=== PATIENT | male | born 1955 | race Caucasian/White ===

== ENCOUNTER 2024-03-19 00:27 | Inpatient (IN) | payer MEDICARE, MEDICAID ==
[2024-03-19] VITALS (74 sets, daily range): BP systolic 55–147; BP diastolic 33–106; PULSE 105–146; RESP 14–24; TEMP 98–102; O2SAT 96–98
[~2024-03-19] VITALS: Ht 172.7 cm; Wt 66.7 kg
[~2024-03-19 00:27] MED LIST: RISP1
[2024-03-19] MEDS: SODIUM CHLORIDE 0.9% 1000ML BAG (SEPSIS BOLUS) IV ONE (00:42)
[2024-03-19 00:59] LABS: HEMATOCRIT. 44.9 % (42.0-52.0); HEMOGLOBIN. 14.8 g/dL (14.0-18.0); MEAN CORPUSCULAR VOLUME 97.1 fL (80.0-94.0); PLATELET 193 x1000/uL (130-400); RED BLOOD CELL COUNT 4.62 mill/uL (4.7-6.1); RED CELL DISTRIBUTION WIDTH 13.1 % (11.6-14.6); WHITE BLOOD COUNT 5.7 x1000/uL (4.5-11.0)
[2024-03-19] MEDS: PIPERACILLIN/TAZO 3.375G/50ML 50 ML IV ONE (00:59)
[2024-03-19 01:03] LABS: CHLORIDE 104 mEq/L (98-107); POTASSIUM 3.8 mEq/L (3.5-5.1); SODIUM 141 mEq/L (136-145)
[2024-03-19 01:04] LABS: CARBON DIOXIDE 23 mEq/L (21-32)
[2024-03-19 01:05] LABS: CALCIUM 9.3 mg/dL (8.7-10.4)
[2024-03-19 01:09] LABS: CREATININE 1.3 mg/dL (0.6-1.3); GLUCOSE 64 mg/dL (70-105); UREA NITROGEN BLOOD 29 mg/dL (9-23)
[2024-03-19 01:11] LABS: ALANINE AMINOTRANSFERASE 31 IU/L (10-49); ALBUMIN 3.7 g/dL (3.2-4.8); ASPARTATE AMINOTRANSFERASE 36 IU/L (<34)
[2024-03-19 01:12] LABS: BILIRUBIN DIRECT 0.2 mg/dL (<=3.0); BILIRUBIN TOTAL 0.5 mg/dL (0.1-1.0); PROTEIN TOTAL 6.5 g/dL (6.0-8.3)
[2024-03-19 01:14] LABS: DIFFERENTIAL COMMENT 1
[2024-03-19] MEDS: VANCOMYCIN 1G PREMIX 200 ML IV ONE (01:32)
[2024-03-19 01:39] LABS: INR 1.5; PROTHROMBIN TIME 16.5 sec (9.6-11.0)
[2024-03-19 01:40] LABS: LACTIC ACID 8.2 mmol/L (0.4-2.0)
[2024-03-19 01:41] LABS: TROPONIN I HIGH SENSITIVITY 115 ng/L (3.0-53)
[2024-03-19 02:15] LABS: CLARITY URINE TURBID (CLEAR); COLOR URINE RED (YELLOW); GLUCOSE URINE NEGATIVE (NEGATIVE); KETONES URINE NEGATIVE (NEGATIVE); LEUKOCYTE ESTERASE URINE 3+ (NEGATIVE); NITRITE URINE POSITIVE (NEGATIVE); OCCULT BLOOD URINE 3+ (NEGATIVE); PH URINE 6.5 (4.5-8.0); PROTEIN URINE 2+ (NEGATIVE); SPECIFIC GRAVITY URINE 1.015 (1.005-1.030)
[2024-03-19] MEDS: ACETAMINOPHEN 325MG TABLET PO NR (02:36)
[2024-03-19] MEDS: SODIUM CHLORIDE 0.9% 1,000 ML IV ONE (03:52)
[2024-03-19] MEDS: NOREPINEPHRINE 8MG/250ML PMX 250 ML IV STA (03:53)
[2024-03-19 04:26] LABS: RBC URINE TNTC /hpf (0-2); WBC URINE 25-50 /hpf (0-2)
[2024-03-19 04:28] LABS: SQUAMOUS EPITHELIAL CELL URINE FEW /lpf (RARE/1+)
[2024-03-19 04:32] LABS: BACTERIA URINE 2+
[2024-03-19] MEDS: LACTATED RINGERS 1,000 ML IV SCH ×2 (05:57→10:04)
[2024-03-19 07:07] LABS: NUCLEATED RED BLOOD CELLS 2 /100 WBC; PLATELET ESTIMATE NORMAL
[2024-03-19] MEDS ORDERED: LIDOCAINE HCL 1% 10 MG/ML 10ML VIAL ONE (08:20)
[2024-03-19] MEDS: NOREPINEPHRINE 32 MG in DEXT 5% WATER 218 ML IV PRN (08:29)
[2024-03-19] MEDS: PHENYLEPHRINE 100 MG in DEXT 5% WATER 240 ML IV PRN (09:06)
[2024-03-19] MEDS ORDERED: PHENYLEPHRINE 50MG/250ML PMX 250 ML IV PRN (09:15)
[2024-03-19 09:38] LABS: CHLORIDE 109 mEq/L (98-107); POTASSIUM 3.8 mEq/L (3.5-5.1); SODIUM 142 mEq/L (136-145)
[2024-03-19 09:39] LABS: CALCIUM 8.3 mg/dL (8.7-10.4); CARBON DIOXIDE 15 mEq/L (21-32)
[2024-03-19 09:44] LABS: CREATININE 1.5 mg/dL (0.6-1.3); GLUCOSE 61 mg/dL (70-105); UREA NITROGEN BLOOD 28 mg/dL (9-23)
[2024-03-19] MEDS: FAMOTIDINE 20MG/2ML VIAL IV SCH (10:03)
[2024-03-19] MEDS: PIPERACILLIN/TAZO 3.375G/50ML 50 ML IV SCH (10:03)
[2024-03-19 10:05] LABS: TROPONIN I HIGH SENSITIVITY 4675 ng/L (3.0-53)
[2024-03-19 10:31] LABS: HEMATOCRIT. 40.2 % (42.0-52.0); MEAN CORPUSCULAR HEMOGLOBIN 31.7 pg (28.0-32.0); MEAN CORPUSCULAR HGB CONC 32.3 g/dL (31.0-37.0); MEAN PLATELET VOLUME 10.8 fl (7.4-10.4); PLATELET 157 x1000/uL (130-400); RED CELL DISTRIBUTION WIDTH 13.5 % (11.6-14.6); WHITE BLOOD COUNT 18.8 x1000/uL (4.5-11.0)
[2024-03-19 10:41] LABS: DIFFERENTIAL COMMENT 1
[2024-03-19] MEDS: BLOOD SUGAR DIAGNOSTIC STRIP TEST SCH (11:53)
[2024-03-19] MEDS: VANCOMYCIN 500MG/100ML IV NR (13:00)
[2024-03-19] MEDS: SODIUM CHLORIDE 0.9% 500 ML IV ONE (13:00)
[2024-03-19] MEDS ORDERED: PIPERACILLIN/TAZO 3.375G/50ML 50 ML IV SCH (14:00)
[2024-03-19] MEDS: ACETAMINOPHEN 650MG/20.3ML UDC PO PRN (14:56)
[2024-03-19] MEDS: POLYETHYLENE GLYCOL 3350 (17GM) 1 DOSE PACK PO PRN (14:56)
[2024-03-19] MEDS: MAGNESIUM 2 G PREMIX 50 ML IV NR (14:57)
[2024-03-19] MEDS: VASOPRESSIN 20 UNIT in SODIUM CHLORIDE 0.9% 99 ML IV PRN (15:16)
[2024-03-19] MEDS ORDERED: ASPIRIN 81MG EC TABLET PO SCH (15:45)
[2024-03-19] MEDS ORDERED: IPRATROPIUM/ALBUTEROL 0.5-3(2.5)MG/3ML NEB HHN PRN (16:15)
[2024-03-19] MEDS: IPRATROPIUM/ALBUTEROL 0.5-3(2.5)MG/3ML NEB HHN SCH (16:38)
[2024-03-19 16:58] LABS: PLATELET ESTIMATE NORMAL
[2024-03-19 17:45] LABS: BG BASE EXCESS -13.7 mmol/L (-2.0-2.0); BG CARBOXYHEMOGLOBIN 0.2 % (0.5-1.5); BG DEOXYHEMOGLOBIN 7.5 % (0.0-5.0); BG FRACTION INSPIRED OXYGEN 30; BG HCO3 ACT 13.1 mmol/L (22.0-26.0); BG METHEMOGLOBIN 0.2 % (0.0-1.5); BG OXYGEN SATURATION 92.5 % (92.0-98.5); BG OXYHEMOGLOBIN 92.1 % (94.0-97.0); BG PCO2 33.6 mmHg (35.0-45.0); BG PH 7.209 (7.350-7.450); BG PO2 66.1 mmHg (75.0-100.0); BG SAMPLE SITE RIGHT FEMORAL; BG VENT MODE NASAL CANNULA
[2024-03-19] MEDS: ENOXAPARIN 60MG/0.6ML SYR SUBCUT SCH (17:58)
[2024-03-19] MEDS: DOPAMINE 800MG PREMIX (DOUBLE) 250 ML IV PRN (19:00)
[2024-03-19] MEDS ORDERED: SODIUM BICARBONATE 100 MEQ in SODIUM CHLORIDE 0.45% 900 ML IV SCH (19:30)
[2024-03-19 21:20] LABS: TROPONIN I HIGH SENSITIVITY 7165 ng/L (3.0-53)
[2024-03-19 21:25] LABS: BG BASE EXCESS -15.2 mmol/L (-2.0-2.0); BG CARBOXYHEMOGLOBIN 0.3 % (0.5-1.5); BG DEOXYHEMOGLOBIN 4.8 % (0.0-5.0); BG METHEMOGLOBIN 0.2 % (0.0-1.5); BG OXYGEN SATURATION 95.2 % (92.0-98.5); BG OXYHEMOGLOBIN 94.7 % (94.0-97.0); BG PCO2 32.7 mmHg (35.0-45.0); BG PH 7.181 (7.350-7.450); BG PO2 78.5 mmHg (75.0-100.0); BG TOTAL HEMOGLOBIN 13.8 g/dL (12.0-18.0); BG VENT MODE NASAL CANNULA
[2024-03-19] MEDS: ATORVASTATIN CALCIUM 20MG TABLET PO SCH (21:25)
[2024-03-20] VITALS (104 sets, daily range): BP systolic 57–156; BP diastolic 27–130; PULSE 102–143; RESP 12–33; TEMP 99.8–100.3; O2SAT 95–97
[2024-03-20] MEDS: SODIUM BICARBONATE 100 MEQ in SODIUM CHLORIDE 0.45% 900 ML IV SCH (00:05)
[2024-03-20 05:25] LABS: POTASSIUM 4.1 mEq/L (3.5-5.1)
[2024-03-20 05:26] LABS: CALCIUM 7.3 mg/dL (8.7-10.4)
[2024-03-20 05:38] LABS: T4 FREE 1.14 ng/dL (0.89-1.76)
[2024-03-20 05:39] LABS: THYROID STIMULATING HORMONE 2.14 uIU/mL (0.55-4.78)
[2024-03-20] MEDS ORDERED: ROCURONIUM BROMIDE 10MG/ML VIAL 5ML IV ONE (09:00)
[2024-03-20] MEDS ORDERED: ETOMIDATE 2MG/ML 10ML VIAL IV ONE (09:00)
[2024-03-20] MEDS: ASPIRIN 81MG TABLET GT SCH (10:03)
[2024-03-20 10:32] LABS: BG BASE EXCESS -10.7 mmol/L (-2.0-2.0); BG CARBOXYHEMOGLOBIN 0.3 % (0.5-1.5); BG DEOXYHEMOGLOBIN 16.1 % (0.0-5.0); BG FRACTION INSPIRED OXYGEN 65; BG METHEMOGLOBIN 0.1 % (0.0-1.5); BG OXYGEN SATURATION 83.8 % (92.0-98.5); BG OXYHEMOGLOBIN 83.5 % (94.0-97.0); BG PCO2 38.6 mmHg (35.0-45.0); BG PH 7.236 (7.350-7.450); BG PO2 47.3 mmHg (75.0-100.0); BG SAMPLE SITE RIGHT RADIAL; BG TOTAL HEMOGLOBIN 13.7 g/dL (12.0-18.0); BG VENT MODE HIGH FLOW
[2024-03-20 10:40] LABS: HEMATOCRIT. 39.4 % (42.0-52.0); HEMOGLOBIN. 12.7 g/dL (14.0-18.0); MEAN CORPUSCULAR HEMOGLOBIN 31.2 pg (28.0-32.0); MEAN CORPUSCULAR HGB CONC 32.3 g/dL (31.0-37.0); MEAN CORPUSCULAR VOLUME 96.7 fL (80.0-94.0); MEAN PLATELET VOLUME 10.9 fl (7.4-10.4); PLATELET 86 x1000/uL (130-400); RED BLOOD CELL COUNT 4.08 mill/uL (4.7-6.1); RED CELL DISTRIBUTION WIDTH 13.4 % (11.6-14.6); WHITE BLOOD COUNT 33.6 x1000/uL (4.5-11.0)
[2024-03-20 10:44] LABS: DIFFERENTIAL COMMENT 1
[2024-03-20 10:51] LABS: CARBON DIOXIDE 19 mEq/L (21-32); CHLORIDE 104 mEq/L (98-107); POTASSIUM 4.5 mEq/L (3.5-5.1); SODIUM 136 mEq/L (136-145)
[2024-03-20 10:52] LABS: CALCIUM 7.1 mg/dL (8.7-10.4)
[2024-03-20 10:57] LABS: CREATININE 3.4 mg/dL (0.6-1.3); GLUCOSE 60 mg/dL (70-105); UREA NITROGEN BLOOD 50 mg/dL (9-23)
[2024-03-20 10:59] LABS: PHOSPHORUS 4.1 mg/dL (2.5-4.9)
[2024-03-20 11:05] LABS: TROPONIN I HIGH SENSITIVITY 8165 ng/L (3.0-53)
[2024-03-20 12:01] LABS: PLATELET ESTIMATE DECREASED
[2024-03-20 12:03] LABS: HEPATITIS B SURFACE ANTIGEN NEGATIVE (Negative)
[2024-03-20 12:15] LABS: HIV 1/2 AB P24AG Negative (Negative)
[2024-03-20] MEDS: CALCIUM GLUCONATE 100MG/ML 10ML VIAL IV NR (12:23)
[2024-03-20] MEDS: INSULIN LISPRO 100 UNITS/ML SUBCUT SCH (16:57)
[2024-03-20] MEDS: PIPERACILLIN/TAZO 3.375G/50ML 50 ML IV SCH (17:02)
[2024-03-20] MEDS: DEXTROSE 50% WATER 50ML SYRINGE IV ONE (17:04)
[2024-03-20] MEDS: IPRATROPIUM BROMIDE (0.02%) 0.5MG/2.5ML NEB HHN NR (18:21)
[2024-03-20] MEDS: HYDROCORTISONE SOD SUCCINATE 100 MG/2 ML VIAL IV SCH (18:48)
[2024-03-20] MEDS: DEXTROSE 50% WATER 50ML SYRINGE IV PRN (20:32)
[2024-03-20] MEDS: DEXT 10% WATER 1,000 ML IV SCH (21:08)
[2024-03-20] MEDS: BLOOD SUGAR DIAGNOSTIC STRIP TEST SCH (21:08)
[2024-03-20] MEDS: AZITHROMYCIN 500 MG TABLET PO SCH (21:19)
[2024-03-20 21:57] LABS: BG CARBOXYHEMOGLOBIN 0.4 % (0.5-1.5); BG DEOXYHEMOGLOBIN 5.1 % (0.0-5.0); BG FRACTION INSPIRED OXYGEN 75; BG HCO3 ACT 17.6 mmol/L (22.0-26.0); BG METHEMOGLOBIN 0.1 % (0.0-1.5); BG OXYGEN SATURATION 94.9 % (92.0-98.5); BG OXYHEMOGLOBIN 94.4 % (94.0-97.0); BG PCO2 50.3 mmHg (35.0-45.0); BG PH 7.162 (7.350-7.450); BG PO2 76.9 mmHg (75.0-100.0); BG SAMPLE SITE RIGHT RADIAL; BG TOTAL HEMOGLOBIN 13.4 g/dL (12.0-18.0); BG VENT MODE HIGH FLOW
[2024-03-20] MEDS ORDERED: HYDROCORTISONE SOD SUCCINATE 100 MG/2 ML VIAL IV SCH (22:00)
[2024-03-20] MEDS: MIDAZOLAM 100MG/100ML PMX 100 ML IV PRN (23:28)
[2024-03-21] VITALS (118 sets, daily range): BP systolic 66–140; BP diastolic 51–96; PULSE 90–126; RESP 18–23; TEMP 93–98.8
[2024-03-21 00:50] LABS: BG BASE EXCESS -8.8 mmol/L (-2.0-2.0); BG CARBOXYHEMOGLOBIN 0.1 % (0.5-1.5); BG DEOXYHEMOGLOBIN 1.9 % (0.0-5.0); BG FRACTION INSPIRED OXYGEN 70; BG HCO3 ACT 16.7 mmol/L (22.0-26.0); BG METHEMOGLOBIN 0.3 % (0.0-1.5); BG OXYGEN SATURATION 98.1 % (92.0-98.5); BG OXYHEMOGLOBIN 97.7 % (94.0-97.0); BG PCO2 34.8 mmHg (35.0-45.0); BG PH 7.298 (7.350-7.450); BG PO2 97.1 mmHg (75.0-100.0); BG SAMPLE SITE RIGHT RADIAL; BG TOTAL HEMOGLOBIN 13.2 g/dL (12.0-18.0); BG TOTAL RESPIRATORY RATE 22 b/min; BG VENT MODE VENT - AC
[2024-03-21 05:48] LABS: HEMATOCRIT. 38.2 % (42.0-52.0); HEMOGLOBIN. 12.3 g/dL (14.0-18.0); MEAN CORPUSCULAR HEMOGLOBIN 31.3 pg (28.0-32.0); MEAN CORPUSCULAR HGB CONC 32.2 g/dL (31.0-37.0); MEAN CORPUSCULAR VOLUME 97.3 fL (80.0-94.0); MEAN PLATELET VOLUME 11.3 fl (7.4-10.4); PLATELET 53 x1000/uL (130-400); RED BLOOD CELL COUNT 3.92 mill/uL (4.7-6.1); RED CELL DISTRIBUTION WIDTH 13.9 % (11.6-14.6)
[2024-03-21 05:53] LABS: CALCIUM 7.3 mg/dL (8.7-10.4); POTASSIUM 5.2 mEq/L (3.5-5.1)
[2024-03-21 06:38] LABS: DIFFERENTIAL COMMENT 1; WHITE BLOOD COUNT 51.7 x1000/uL (4.5-11.0)
[2024-03-21] MEDS ORDERED: CALCIUM GLUCONATE 1,000 MG in DEXT 5% WATER 90 ML IV ONE (07:45)
[2024-03-21] MEDS: CALCIUM GLUCONATE 1GM PREMIX 50ML IV NR (08:59)
[2024-03-21 09:09] LABS: BG BASE EXCESS -8.4 mmol/L (-2.0-2.0); BG CARBOXYHEMOGLOBIN 0.2 % (0.5-1.5); BG DEOXYHEMOGLOBIN 1.7 % (0.0-5.0); BG FRACTION INSPIRED OXYGEN 70; BG HCO3 ACT 17.2 mmol/L (22.0-26.0); BG OXYGEN SATURATION 98.3 % (92.0-98.5); BG OXYHEMOGLOBIN 98.1 % (94.0-97.0); BG PCO2 35.8 mmHg (35.0-45.0); BG PO2 108.3 mmHg (75.0-100.0); BG SAMPLE SITE LEFT RADIAL; BG TOTAL HEMOGLOBIN 12.4 g/dL (12.0-18.0); BG VENT MODE VENT - AC
[2024-03-21 09:15] LABS: HEPATITIS B SURFACE ANTIGEN NEGATIVE (Negative)
[2024-03-21 09:36] LABS: HEPATITIS A AB IGM NEGATIVE (Negative); HEPATITIS B CORE AB IGM NEGATIVE (Negative)
[2024-03-21 09:37] LABS: HEPATITIS C AB NON REACTIVE (Neg) (Negative)
[2024-03-21] MEDS ORDERED: THROMBIN (BOVINE) 5000 UNITS/VIAL TOP ONE (11:29)
[2024-03-21] MEDS ORDERED: GENTAMICIN SULF 40MG/ML 2ML VIAL ONE (11:30)
[2024-03-21] MEDS ORDERED: BACITRACIN 14GM TUBE TOP ONE (11:30)
[2024-03-21] MEDS ORDERED: LIDOCAINE HCL/EPINEPHRINE 1%-EPI 1:100,000 20 ML VIAL ONE (11:30)
[2024-03-21] MEDS ORDERED: NOREPINEPHRINE 8MG/250ML PMX 250ML IV PRN (11:30)
[2024-03-21] MEDS ORDERED: NICARDIPINE 40 MG/200 ML PREMIX 200 ML IV PRN (11:30)
[2024-03-21] MEDS ORDERED: DESMOPRESSIN ACETATE 4MCG/ML AMP ONE (11:36)
[2024-03-21] MEDS ORDERED: NOREPINEPHRINE 8MG/250ML PMX 250 ML IV ONE (11:45)
[2024-03-21] MEDS ORDERED: VASOPRESSIN 20 UNIT/ML 1ML ONE (11:51)
[2024-03-21] MEDS ORDERED: FENTANYL CITRATE/PF 50MCG/ML 2ML VIAL ONE (12:16)
[2024-03-21] MEDS: DEXT 10% WATER 1,000 ML IV SCH (12:22)
[2024-03-21] MEDS: INSULIN LISPRO 100 UNITS/ML SUBCUT SCH (12:24)
[2024-03-21 12:25] LABS: HEMOGLOBIN 12.6 g/dL (14.0-18.0)
[2024-03-21] MEDS: ROCURONIUM BROMIDE 10MG/ML VIAL 5ML IV NR (12:30)
[2024-03-21] MEDS: PROTAMINE SULFATE 50 MG in SODIUM CHLORIDE 0.9% 50 ML IV NR (12:35)
[2024-03-21 12:38] LABS: AMMONIA < 17 uMol/L (<32)
[2024-03-21 12:40] LABS: INR 1.5; PROTHROMBIN TIME 16.7 sec (9.6-11.0)
[2024-03-21 15:35] LABS: PLATELET ESTIMATE MARKEDLY DECREASED
[2024-03-21] MEDS ORDERED: LEVETIRACETAM 500 MG in SODIUM CHLORIDE 0.9% 100 ML IV SCH (17:00)
[2024-03-21] MEDS: LEVETIRACETAM 500MG PREMIX 100ML IV SCH (17:48)
[2024-03-21 19:20] LABS: HEMATOCRIT. 31.9 % (42.0-52.0); HEMOGLOBIN. 10.6 g/dL (14.0-18.0); MEAN CORPUSCULAR HEMOGLOBIN 31.6 pg (28.0-32.0); MEAN CORPUSCULAR HGB CONC 33.1 g/dL (31.0-37.0); MEAN CORPUSCULAR VOLUME 95.5 fL (80.0-94.0); MEAN PLATELET VOLUME 10.1 fl (7.4-10.4); RED BLOOD CELL COUNT 3.34 mill/uL (4.7-6.1); RED CELL DISTRIBUTION WIDTH 13.7 % (11.6-14.6); WHITE BLOOD COUNT 34.4 x1000/uL (4.5-11.0)
[2024-03-21 19:23] LABS: INR 1.5; PROTHROMBIN TIME 16.1 sec (9.6-11.0)
[2024-03-21 19:47] LABS: DIFFERENTIAL COMMENT 1; PLATELET 48 x1000/uL (130-400)
[2024-03-21 20:05] LABS: PLATELET ESTIMATE MARKEDLY DECREASED
[2024-03-22] VITALS (32 sets, daily range): BP systolic 57–120; BP diastolic 43–94; PULSE 91–118; RESP 20; TEMP 97.5–97.6
[2024-03-22 05:43] LABS: CHLORIDE 100 mEq/L (98-107); POTASSIUM 4.5 mEq/L (3.5-5.1); SODIUM 131 mEq/L (136-145)
[2024-03-22 05:44] LABS: CALCIUM 6.4 mg/dL (8.7-10.4); CARBON DIOXIDE 22 mEq/L (21-32)
[2024-03-22 05:49] LABS: CREATININE 3.2 mg/dL (0.6-1.3); GLUCOSE 213 mg/dL (70-105); UREA NITROGEN BLOOD 49 mg/dL (9-23)
[2024-03-22 05:51] LABS: PHOSPHORUS 4.4 mg/dL (2.5-4.9)
[2024-03-22 06:35] LABS: HEMATOCRIT. 31.2 % (42.0-52.0); HEMOGLOBIN. 10.4 g/dL (14.0-18.0); MEAN CORPUSCULAR HEMOGLOBIN 31.5 pg (28.0-32.0); MEAN CORPUSCULAR HGB CONC 33.2 g/dL (31.0-37.0); MEAN CORPUSCULAR VOLUME 94.8 fL (80.0-94.0); MEAN PLATELET VOLUME 10.9 fl (7.4-10.4); RED BLOOD CELL COUNT 3.29 mill/uL (4.7-6.1); RED CELL DISTRIBUTION WIDTH 14.1 % (11.6-14.6); WHITE BLOOD COUNT 28.6 x1000/uL (4.5-11.0)
[2024-03-22 06:52] LABS: DIFFERENTIAL COMMENT 1
[2024-03-22] MEDS ORDERED: AMIODARONE HCL 50MG/ML 3ML VIAL IV ONE (07:00)
[2024-03-22] MEDS ORDERED: CALCIUM GLUCONATE 1,000 MG in DEXT 5% WATER 90 ML IV ONE (07:15)
[2024-03-22] MEDS ORDERED: EPINEPHRINE 10 MG in SODIUM CHLORIDE 0.9% 240 ML IV PRN (07:30)
[2024-03-22] MEDS ORDERED: CALCIUM GLUCONATE 1GM PREMIX 50 ML IV SCH (08:00)
[2024-03-22 13:14] LABS: PLATELET ESTIMATE MARKEDLY DECREASED
[2024-03-22 13:15] LABS: PLATELET 33 x1000/uL (130-400)
== END 2024-03-22 07:35 | DRG 710 ==
LOC: ER 00:37 → MICUSO 02:25 → EDBEDREQSVC 03:33
PROVIDERS: ADMIT Internal Medicine; ATTEND Internal Medicine
PROC: 02HV33Z Insertion of Infusion Device into Superior Vena Cava, Percutaneous Approach (ICD-10-PCS; principal; 2024-03-19)
PROC: 5A0935A Assistance with Respiratory Ventilation, Less than 24 Consecutive Hours, High Flow/Velocity Cannula (ICD-10-PCS; 2024-03-19)
PROC: B548ZZA Ultrasonography of Superior Vena Cava, Guidance (ICD-10-PCS; 2024-03-19)
PROC: 5A1945Z Respiratory Ventilation, 24-96 Consecutive Hours (ICD-10-PCS; 2024-03-20)
PROC: 0BH17EZ Insertion of Endotracheal Airway into Trachea, Via Natural or Artificial Opening (ICD-10-PCS; 2024-03-20)
PROC: 00C40ZZ Extirpation of Matter from Intracranial Subdural Space, Open Approach (ICD-10-PCS; 2024-03-21)
PROC: 00U207Z Supplement Dura Mater with Autologous Tissue Substitute, Open Approach (ICD-10-PCS; 2024-03-21)
PROC: 02HV33Z Insertion of Infusion Device into Superior Vena Cava, Percutaneous Approach (ICD-10-PCS; 2024-03-21)
PROC: B548ZZA Ultrasonography of Superior Vena Cava, Guidance (ICD-10-PCS; 2024-03-21)
PROC: 30233K1 Transfusion of Nonautologous Frozen Plasma into Peripheral Vein, Percutaneous Approach (ICD-10-PCS; 2024-03-21)
PROC: 30233R1 Transfusion of Nonautologous Platelets into Peripheral Vein, Percutaneous Approach (ICD-10-PCS; 2024-03-21)
PROC: 5A1D70Z Performance of Urinary Filtration, Intermittent, Less than 6 Hours Per Day (ICD-10-PCS; 2024-03-21)
PROC: 5A12012 Performance of Cardiac Output, Single, Manual (ICD-10-PCS; 2024-03-22)
PROC: 5A2204Z Restoration of Cardiac Rhythm, Single (ICD-10-PCS; 2024-03-22)
DX: A41.9 Sepsis, unspecified organism (principal); I60.9 Nontraumatic subarachnoid hemorrhage, unspecified; J96.01 Acute respiratory failure with hypoxia; R65.21 Severe sepsis with septic shock; N17.0 Acute kidney failure with tubular necrosis; G93.40 Encephalopathy, unspecified; J18.9 Pneumonia, unspecified organism; E83.51 Hypocalcemia; I46.9 Cardiac arrest, cause unspecified; I21.4 Non-ST elevation (NSTEMI) myocardial infarction; I62.01 Nontraumatic acute subdural hemorrhage; J44.0 Chronic obstructive pulmonary disease with (acute) lower respiratory infection; E87.20 Acidosis, unspecified; F20.9 Schizophrenia, unspecified; E78.5 Hyperlipidemia, unspecified; F32.A Depression, unspecified; N18.9 Chronic kidney disease, unspecified; I12.9 Hypertensive chronic kidney disease with stage 1 through stage 4 chronic kidney disease, or unspecified chronic kidney disease; K21.9 Gastro-esophageal reflux disease without esophagitis; R13.10 Dysphagia, unspecified; E83.42 Hypomagnesemia; F03.93 Unspecified dementia, unspecified severity, with mood disturbance; E87.5 Hyperkalemia; R40.2A Nontraumatic coma due to underlying condition; N10 Acute pyelonephritis; K56.41 Fecal impaction; Z74.01 Bed confinement status; Z93.1 Gastrostomy status; Z86.73 Personal history of transient ischemic attack (TIA), and cerebral infarction without residual deficits
CPT/HCPCS: 31500; 36415; 36556; 36573; 36600; 71045; 74176; 76770; 76937; 80048; 80076; 80202; 81003; 82140; 82375; 82533; 82805; 82962; 83605; 83735; 84100; 84145; 84439; 84443; 84481; 84484; 85014; 85018; 85025; 86705; 86709; 86850; 86900; 86927; 87070; 87077; 87186; 87340; 87804; 90935; 93005; 93306; 93970; 94003; 94640; 94660; 99291; C1725; C1752; J0282; J0610; J1265; J1580; J1650; J1720; J1815; J1953; J2543; J2597; J2720; J3010; J3370; J3475; J3490; J7030; J7050; J7060; J7120; P9017; P9034; C1713